=== PATIENT | male | born 1955 | race Caucasian/White ===

== ENCOUNTER → 2016-07-11 | Outpatient (CLI) | payer BC ==
[~2016-07-11] MED LIST: AMLODIPINE BES10 MG PO; APAP/HYDROCODON1 TA9 PO; BUTRANS10 MCG/HR TD; MELOXICAM15 MG PO; PRAVACHOL20 MG PO; PRILOSEC20 M1 PO
[2016-07-11 09:24] LABS: HEMOGLOBIN 15.2 g/dL (14.1-18.0); LYMPH # 2.5 K/mm3 (0.7-4.5); LYMPH % 27.9 % (10-50)
[2016-07-11 10:57] LABS: BUN 10 mg/dL (7-18); PROSTATE-SPECIFIC AG SCREEEN 0.4 ng/mL (0.0-4.0)
[2016-07-11 10:58] LABS: GFR (ESTIMATED) 77 ML/MIN (>60)
== END ==
LOC: LAB 09:01
PROVIDERS: Family Medicine; Otolaryngology
DX: H61.91 Disorder of right external ear, unspecified (principal); I10 Essential (primary) hypertension; E78.5 Hyperlipidemia, unspecified; Z01.810 Encounter for preprocedural cardiovascular examination; Z01.811 Encounter for preprocedural respiratory examination; Z01.812 Encounter for preprocedural laboratory examination
CPT/HCPCS: G0103

== ENCOUNTER 2016-10-11 11:22 | Emergency (ER) | payer BC ==
[~2016-10-11] VITALS: Ht 172.7 cm; Wt 90.7 kg
[2016-10-11 11:42] LABS: HEMOGLOBIN 15.7 g/dL (14.1-18.0); LYMPH # 2.4 K/mm3 (0.7-4.5); LYMPH % 31.5 % (10-50)
--- NOTE | 2016-10-11 11:45 | Emergency Room Report ---
History of Present Illness Time Seen by 113Monse Presenting Problem in Triage Pt arrived:Walked Presenting Problem:PT C/O EPIGASTRIC PAIN THAT HAS BEEN PRESENT FOR 2 DAYS AND ISN'T GOING AWAY. PT REPORTS HX OF INDIGESTION D/T HERNIA AND STATES PAIN IS SIMILAR TO THAT BUT WAS CONCERNED SINCE IT HAS LASTED SO LONG. PT DENIES SOA, N/ V, PAIN DOWN EITHER ARM OR IN BACK Onset of symptoms date/time:/ or onset unknown for:MEDICAL HX UNKNOWN Treatment Prior to Arrival: [employer]TH[employer] TE[employer]ER Provided by: Sepsis Risk Assessment: Temp: 98.0 B/P: 159/109 MAP: 125 Pulse: 67 Resp: 18 Recent fever? N Clinical Suspician of Infection? N Mental Status: 1 - Regular (Normal Baseline) Sepsis Risk:Low Sepsis Risk Have you (or family members/close friends) recently traveled outside the [place]? N If Yes, where/when: Have you had exposure to infectious disease within the past month? N TB? Other? Specify: Sensation of burning in epigastric area; hx of hiatal hernia and pain similar. States walked over an hour yesterday and didn't notice any ernesto chest pain. Has had burning pain for the past two days. He feels a little bloated; hx colon resection for colon cancer one year ago, but denies any weight loss, no blood from above or below; no fever; no SOB, a little nausea, no vomiting. Pain nonradiating. Moving bowels well. Is not diabetic. No cardiac hx. ALLERGIES Coded Allergies: Penicillins (07/25/16) Home Medications Active Scripts OMEPRAZOLE MAGNESIUM (Prilosec 20MG) 20 MG PO BID #28 TCP Prov: 11/04/15 Reported Medications Pravastatin Sodium (Pravachol) 20 MG PO QHS #90 Amlodipine Besylate (Amlodipine Besylate) 10 MG PO DAILY #90 Buprenorphine (Butrans) 10 MCG TD WEEKLY #4 HYDROCODONE/ACETAMINOPHEN (Hydrocodon-Acetaminoph 7.5-325) 1 TAB PO Q4HP PRN PAIN #120 Meloxicam (Meloxicam 15MG) 15 MG PO DAILY #90 History Medical History General CAD? No Angina: No VA: No Hypertension? Yes Hyperlipidemia? Yes CHF? No DVT? No PE? No COPD? No Asthma? No Anemia? No GERD? No Gastric ulcers? No GI Bleed? No Hernia? No Thyroid Problems? No Hypothyroidism? No CVA? No Seizures? No Diabetes? No Renal Insuffiency? No End Stage Renal Disease? No UTI? No Stones? No BPH? No GB Disease: No Nephritic Syndrome? No Asplenia? No Hepatitis? No Sickle Cell Disease? No Arthritis? No Migraines? No Cataracts? No Glaucoma? No MRSA? No HIV? No TB? No Anxiety? No Depression? No Cancer? Yes Site: COLON CANCER More? No Immunization Hx DT/Tetanus > 10 YRS Flu LAST YEAR Pneumonia NEVER Surgical Hx Previous Surgery?Y KNEE LEFT Tonsils COLON RESECTION 09/20/15 Family History Family Hx Diabetes Yes CAD Yes Hypertension Yes Hyperlipidemia Yes Cancer Yes TB No Social History Smoking Hx Smoker: Never Smoker Tobacco: No Alcohol Alcohol: No Review of Systems All Other Systems Reviewed and Negative Gastrointestinal see HPI Physical Exam Vital Signs Vital Signs Date Time Temp Pulse Resp B/P Pulse O2 O2 Flow FiO2 Ox Delivery Rate 10/11 1124 98.0 67 18 159/109 97 General Appearance normal appearance, WD/WN, no apparent distress Eye Exam - bilateral eye normal exam, bilateral eye PERRL, bilateral eye EOMI Neck normal inspection, non-tender, supple, full range of motion Respiratory Status Yes: trachea midline, chest symmetrical, non tender chest. No: respiratory distress, tender on palpation, use of accessory muscles, pain on inspiration, pain on expiration, productive cough, non productive cough. Lung Sounds bilateral: normal breath sounds, lungs clear. Cardiovascular normal exam, regular rate/rhythm, no peripheral edema, no gallop, no JVD, no murmur, no rub, normal peripheral pulses Peripheral Pulses Pulses normal Yes Gastrointestinal normal bowel sounds, normal exam, soft, no organomegaly, no pulsatile mass, no guarding, no rebound, tenderness (mild mid epig pain with palp), no masses Extremities non-tender, normal range of motion, no calf tenderness, no pedal edema Strength 5 Upper Ext (L), 5 Upper Ext (R), 5 Lower Ext (L), 5 Lower Ext (R) Neurologic alert, normal exam, no motor/sensory deficits, oriented x 3 Skin intact, normal color Medical Decision Making LABS/Meds/Orders Pt receiving controlled substance in ED? No Results/Orders Laboratory Tests 10/11/16 1129: Sodium 138, Potassium 3.9, Chloride 102, Carbon Dioxide 28, BUN 15, Creatinine 1.1, Estimated Creat Clear 94, Estimated GFR (MDRD) 69, Glucose 113 H, Calcium 9.2, Total Bilirubin 0.4, AST 18, ALT 30, Alkaline Phosphatase 92, Creatine Kinase 188, CK-MB (CK-2) Rel Index 0.3, CK and CKMB Interp 0.6, Troponin I < 0.02, Total Protein 9.1 H, Albumin 4.5, Globulin 4.6 H, Albumin/Globulin Ratio 1.0 L, WBC 7.5, RBC 5.25, Hgb 15.7, Hct 46.0, MCV 87.7, RDW 12.9, Plt Count 294 , MPV 6.6 L, Gran % 59.4, Gran # 4.5, Lymphocytes % 31.5, Monocytes % 6.9, Eosinophils % 1.7, Basophils % 0.6, Lymphocytes # 2.4, Monocytes # 0.5, Eosinophils # 0.1, Basophils # 0.1, PUBS MCHC 34.2, MCH 30.0 Current Medication Orders Sig/Yamila Start time Last Medication Dose Route Stop Time Status Admin Multi-Ingredient GI 60 ML ONCE ONE 10/11 1230 AC Drug PO 10/11 1231 Pantoprazole Sodium 40 MG ONCE ONE 10/11 1200 DC 10/11 IV 10/11 1201 1157 Sodium Chloride 10 ML ONCE ONE 10/11 1200 DC IV 10/11 1201 Pantoprazole Sodium 0 .STK-MED ONE 10/11 1156 DC IV Sodium Chloride 10 ML PRN PRN 10/11 1130 AC IV 10/12 1129 Orders Procedure Date/time Status 12 LEAD EKG-SRAVANI (INITIAL) 10/11 1130 Active ELECTROCARDIOGRAM REQUEST 10/11 1129 Active IV SALINE LOCK 10/11 112 Active ENVIRONMENTAL COMMUNICATIONS SPECIALIST 10/11 112 Active CBC WITH AUTO DIFF 10/11 1129 Complete CARDIAC ENZYMES 10/11 1129 Complete CHEM 12 PROFILE 10/11 1129 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 of ischemic chgs, no ectopy, normal QRS, normal SD, normal EKG (NSR 77) XRAY/CT/US XRAY/CT/US XRAY chest XR interpretation by reviewed by me Xray Results normal/NAD, no infiltrates, normal heart size, normal lung inflation bryce Progress ED Progress Notes Date 10/11/16 Time 1222 Comment Discomfort relieved with Protonix. Departure Departure Time of Disposition 1223 Disposition DC Home or Self Care(routine) Clinical Impression Primary Impression: Epigastric pain Secondary Impressions: History of epigastric pain Condition STABLE Referrals Flaco GELLER,Trish Washington (Family) Patient Instructions DI for Epigastric Pain Additional Instructions Recommend Pepcid or Zantac over the counter daily, then see Dr. Sam in one week for recheck; keep appointment with Dr. Smith for next week. Discharge Counseling Counseled pt/family regarding diagnosis, test results, medications/RX, home care, follow up needs ED Critical Care Critical Care No at 1225
[2016-10-11 12:04] LABS: BUN 15 mg/dL (7-18); GFR (ESTIMATED) 69 ML/MIN (>60)
--- OUTSIDE RECORDS SUMMARY | 2016-10-11 12:13 | External Medical Summary Rpt ---
Demographics Preferred Language Uruguayan Marital Status Unknown Episcopal Affiliation Unknown Race Unknown Ethnic Group Unknown Author Author , JENNIE SCHNEIDER Address Unknown Phone [email or web address] Immunization Name Date Rout CVX Reac Dose Comm Prov Is Faci e tion ent ider Refu lity Give sed n Td 03-0 9 999 Hist H149 No H149 ([place] 5-19 [facility] lt), 97 al Info adso rmat rbed ion - Sour ce Unsp ecif ied
--- OUTSIDE RECORDS SUMMARY | 2016-10-11 12:13 | External Medical Summary Rpt ---
Author Author [employer] Organization [employer] Address Unknown Phone Unavailable Purpose Continuity of Care Document - through 2016
--- OUTSIDE RECORDS SUMMARY | 2016-10-11 12:13 | External Medical Summary Rpt ---
Author Author JENNIE Address Unknown Phone [email or web address] Purpose Continuity of Care Document - 10-11-2016 through 2016
--- OUTSIDE RECORDS SUMMARY | 2016-10-11 12:13 | External Medical Summary Rpt ---
Demographics Preferred Language Vincentian Marital Status Unknown Protestant Affiliation Unknown Race Unknown Ethnic Group Unknown Author Author , JENNIE SCHNEIDER Address Unknown Phone [email or web address] Immunization Name Date Rout CVX Reac Dose Comm Prov Is Faci e tion ent ider Refu lity Give sed n Td 03-0 9 999 Hist H149 No H149 ([place] 5-19 [facility] lt), 97 al Info adso rmat rbed ion - Sour ce Unsp ecif ied
--- OUTSIDE RECORDS SUMMARY | 2016-10-11 12:13 | External Medical Summary Rpt ---
Author Author JENNIE Address Unknown Phone [email or web address] Purpose Continuity of Care Document - 10-11-2016 through 2016
--- OUTSIDE RECORDS SUMMARY | 2016-10-11 12:13 | External Medical Summary Rpt ---
Author Author JENNIE Cameron, [employer] Organization [employer] Address Unknown Phone Unavailable Results CBC W Auto Differential panel in Blood Observa Value Referen Units Interpr Notes Date tion ce etation Range Basophils 0 - 0.2 K/MM3 Normal No Oct 11 informati 2016 [#/volume on in 11:29 AM ] in source Blood by data Automated count Basophils 0.1 - 2.0 % Normal No Oct 11 inform2016 leukocyte on in 11:29 AM s in source Blood by data Automated count Eosinophi 0.0 - 0.4 K/mm3 Normal No Oct 11 ls informati 2016 [#/volume on in 11:29 AM ] in source Blood by data Automated count Eosinophi 0.1 - % Normal No Oct 11 ls/100 12.0 inform2016 leukocyte on in 11:29 AM s in source Blood by data Automated count Granulocy 1.3 - 8.0 K/mm3 Normal No Oct 11 chandni ati 2016 [#/volume on in 11:29 AM ] in source Blood by data Automated count Granulocy 37.0 - % Normal No Oct 11 chandni/100 80.0 informati 2016 leukocyte on in 11:29 AM s in source Blood by data Automated count Hematocri 42.0 - % Normal No Oct 11 t [Volume 52.0 ati 2016 on in 11:29 AM Fraction] source of Blood data Hemoglobi 14.1 - g/dL Normal No Oct 11 n 18.0 informati 2016 [Mass/vol on in 11:29 AM ume] in source Blood data Lymphocyt 0.7 - 4.5 K/mm3 Normal No Oct 11 es informati 2016 [#/volume on in 11:29 AM ] in source Unspecifi data ed specimen by Automated count Lymphocyt 10 - 50 % Normal No Oct 11 es informati 2016 [#/volume on in 11:29 AM ] in source Unspecifi data ed specimen by Automated count Erythrocy 27 - 31.2 pg Normal No Oct 11 te mean ati 2017 corpuscul on in 11:29 AM ar source hemoglobi data n [Entitic mass] Erythrocy 31.8 - g/dl Normal No Oct 11 te mean 35.4 inform2016 corpuscul on in 11:29 AM ar source hemoglobi data n concentra tion [Mass/vol ume] by Automated count Erythrocy 82.2 - fl Normal No Oct 11 te mean 97.8 informati 2016 corpuscul on in 11:29 AM ar volume source [Entitic data volume] by Automated count Monocytes 0.1 - 1.0 K/mm3 Normal No Oct 11 informati 2016 [#/volume on in 11:29 AM ] in source Blood by data Automated count Monocytes 1.7 - 9.3 % Normal No Oct 11 / informati 2017 leukocyte on in 11:29 AM s in source Blood by data Automated count Platelet 7.4 - fl Low No Oct 11 mean 10.4 informati 2016 volume on in 11:29 AM [Entitic source volume] data in Blood by Automated count Platelets 142 - 424 K/mm3 Normal No Oct 11 informati 2016 [#/volume on in 11:29 AM ] in source Blood data Erythrocy 4.6 - 6.2 M/mm3 Normal No Oct 11 chandni informati 2016 [#/volume on in 11:29 AM ] in source Amniotic data fluid Erythrocy 11.5 - % Normal No Oct 11 te 17.5 informati 2016 distribut on in 11:29 AM ion width source [Entitic data volume] by Automated count Leukocyte 4.8 - K/MM3 Normal No Oct 11 s 10.8 informati 2016 [#/volume on in 11:29 AM ] in source Blood data
--- NOTE | 2016-10-11 12:18 | RADIOLOGY REPORT PS360 ---
CHEST-PORTABLE HISTORY: Pain EPIGASTRIC PAIN ORDERING PHYSICIAN: Monique Colvin MD PATIENT AGE: 60 years COMPARISON: None available FINDINGS: The cardiomediastinal silhouette and pulmonary vascularity are within normal limits. The lungs are clear without infiltrates, suspicious nodules, or pleural effusions. No acute bony abnormalities. IMPRESSION: Negative chest, no acute finding
[2016-10-11 12:28] VITALS: BP 142/89
== END 2016-10-11 12:29 | disposition home or self-care (01) ==
LOC: ER 11:22
PROVIDERS: Emergency Medicine
DX: R10.13 Epigastric pain (principal); I10 Essential (primary) hypertension